=== PATIENT | female | born 1980 | race Caucasian/White ===

== ENCOUNTER → 2017-07-17 01:49 | Outpatient (CLI) | payer BC ==
[2015-12-27 06:24] VITALS: BMI 34.0
[~2017-07-17 01:49] MED LIST: CONTRAVE PO
[2017-07-17 02:43] LABS: T4 THYROXIN - FREE 0.99 ng/dL (0.76-1.46); THYROID STIMULATING HORMONE 2.62 uIU/mL (0.36-3.74)
== END ==
LOC: D.LABREF 01:49
PROVIDERS: Emergency Medicine
DX: R53.83 Other fatigue (principal)

== ENCOUNTER 2020-05-11 20:05 | Emergency (ER) | payer BC ==
[~2020-05-11] VITALS: Ht 157.5 cm; Wt 106.6 kg
[2020-05-11 20:10] VITALS: Ht 157.5 cm; Wt 106.6 kg
[2020-05-11 20:29] LABS: BASOPHILS 0.1 % (0-2); EOSINOPHILS 1.9 % (0-7); HEMATOCRIT 44.1 % (36.0-48.0); HEMOGLOBIN 14.4 g/dL (12-16); IMMATURE GRANULOCYTES 0.3 % (0-5); LYMPHOCYTES 33.5 % (15-50); MCH 27.5 pg (26.0-34.0); MCHC 32.7 g/dL (31.0-37.0); MCV 84.2 fL (80.0-100.0); MEAN PLATELET VOLUME 9.6 fL (7.4-10.4); MONOCYTES 13.3 % (2-11); NEUTROPHILS 50.9 % (40-80); PLATELET COUNT 341 10x3/uL (130-400); RBC 5.24 10x6/uL (4.00-5.40); RDW 12.6 % (11.5-14.5); WBC 7.8 10x3/uL (4.8-10.8)
[2020-05-11 20:40] LABS: CALC OSMOLALITY 278 mosm/kg (275-300); CALCIUM 8.4 mg/dL (8.5-10.1); CARBON DIOXIDE 28.5 mmol/L (21.0-32.0); CHLORIDE - SERUM 105 mmol/L (98-107); CREATININE - SERUM 1.1 mg/dL (0.6-1.3); GLUCOSE 130 mg/dL (74-106); POTASSIUM - SERUM 3.4 mmol/L (3.5-5.1); SODIUM 139 mmol/L (136-145); UREA NITROGEN 10 mg/dL (7-18); eGFR NON AFRICAN AMERICAN 59 mL/min (90-120)
[2020-05-11 20:49] LABS: ALBUMIN 3.4 g/dL (3.4-5.0); ALKALINE PHOSPHATASE 134 U/L (30-120); ALT (SGPT) 74 U/L (10-68); AMYLASE - SERUM 53 U/L (25-115); BILIRUBIN - TOTAL 0.87 mg/dL (0.2-1.3); LIPASE 170 U/L (73-393); PROTEIN - SERUM 7.3 g/dL (6.4-8.2); TROPONIN-I < 0.017 ng/mL (0.000-0.060)
[2020-05-11 22:09] LABS: BACTERIA MODERATE /hpf (NEGATIVE); BILIRUBIN NEGATIVE (NEGATIVE); EPITHELIAL CELLS 0-5 /hpf (0-5); GLUCOSE NEGATIVE (NEGATIVE); KETONE NEGATIVE (NEGATIVE); NITRITE NEGATIVE (NEGATIVE); RED CELLS - URINE 0-5 /hpf (0-5); UROBILINOGEN NORMAL (NORMAL); WHITE CELLS - URINE 0-5 /hpf (NEGATIVE)
[2020-05-11] MEDS ORDERED: HYDROCODON-ACE1 EA10 PO (22:28)
[2020-05-11] MEDS ORDERED: PHENERGAN25 M1 PO (22:28)
[2020-05-11 22:45] VITALS: BP 132/77
[2020-05-14 10:54] VITALS: Ht 157.5 cm; Wt 106.6 kg
== END 2020-05-11 22:45 | disposition home or self-care (01) ==
LOC: D.ER
PROVIDERS: Family Medicine
DX: K80.20 Calculus of gallbladder without cholecystitis without obstruction (principal); R10.9 Unspecified abdominal pain; R11.0 Nausea; R19.7 Diarrhea, unspecified

== ENCOUNTER 2020-05-21 06:15 | Day surgery (SDC) | payer BC ==
[2020-05-18 09:43] LABS: HEMATOCRIT 45.9 % (36.0-48.0); HEMOGLOBIN 14.9 g/dL (12-16); MCH 27.3 pg (26.0-34.0); MCHC 32.5 g/dL (31.0-37.0); MCV 84.1 fL (80.0-100.0); MEAN PLATELET VOLUME 9.3 fL (7.4-10.4); RBC 5.46 10x6/uL (4.00-5.40); RDW 12.7 % (11.5-14.5); WBC 7.2 10x3/uL (4.8-10.8)
[2020-05-18 09:58] LABS: ANION GAP 9.3 mmol/L (8-16); CALCIUM 8.8 mg/dL (8.5-10.1); CARBON DIOXIDE 29.7 mmol/L (21.0-32.0); CREATININE - SERUM 0.9 mg/dL (0.6-1.3)
[~2020-05-21] VITALS: Ht 157.5 cm; Wt 105.7 kg
[~2020-05-21 06:15] MED LIST changes: +HYDROCHLOROTH12.5 M1 PO; +HYDROCODON-ACE1 EA10 PO; +PHENERGAN25 M1 PO; +SYNTHROID50 MCG PO
[2020-05-21 07:03] VITALS: BP 125/91; Ht 157.5 cm; Wt 105.7 kg
[2020-05-21] MEDS ORDERED: HYDROCODON-ACE1 EAC7 PO (08:20)
--- NOTE | 2020-05-21 09:14 | NUR ---
NEVAE[facility] REF [id number] LOT [id number] EXP 11/26/2024
--- NOTE | 2020-05-21 10:15 | NUR ---
[id number] CRITERIA FOR RELEASE GIVEN FAMILY AT SIDE
== END 2020-05-21 11:10 | disposition home or self-care (01) ==
LOC: D.OPS 06:15 → D.PAN 08:15 → D.OPS 11:10
PROVIDERS: Anesthesiology; ATTEND Surgery
DX: K80.20 Calculus of gallbladder without cholecystitis without obstruction (principal); I10 Essential (primary) hypertension; E66.01 Morbid (severe) obesity due to excess calories